=== PATIENT | female | born 1985 | race Caucasian/White ===

== ENCOUNTER 2019-01-01 17:05 | Emergency (ER) | payer MEDICAID, SELFPAY ==
[2019-01-01 17:07] VITALS: BP 128/58; PULSE 84; RESP 18; TEMP 37.1; O2SAT 99
--- NOTE | 2019-01-01 17:23 | ED.GENADUL_ITS ---
Discharge Plan Disposition Patient Disposition: HOME Condition: Good Discharge Details Chief Complaint: Abd Prob Clinical Impression: Bright red rectal bleeding Primary Care Provider: Primitivo Lea ED Provider: Lisha Newby Discharge Instructions Instructions: Rectal Bleeding (ED) Additional Instructions: Labs and imaging are reassuring today. Encourage hydration. Encourage fiber intake. You will be contacted by care managers regarding follow up with general surgery. If you do not hear by Sunday please call number listed below. If you develop fevers/chills, increased pain, increased bleeding or other new/worsening symptoms please seek care urgently once again. Stand Alone Forms: Work Release Referrals: Primitivo Lea [Primary Care Provider] - Abby Banks MD [ [facility] STAFF PHYSICIAN] - Medical Decision Making Patient is a 33 year old female with hx of fibromyalgia, with c/c of 2 blood clots per rectum. States that she had a normal BM this morning, no blood in stool at that time. A few hours later, passed a small blood clot like you would have during your period. Is sure that htis was from her rectum, states she noted in on the paper when wiping. Has another similar episode a few hours later. Is endorsing LLQ pain. LMP was 1 week ago. No recent travel. No recent antibiotics. Denies any rectal trauma. Has not put anything in her rectum. Denies easy bruising, no hematuria, bleeding from gums. Has not had this occur before. On exam, patient appears nontoxic. Vital signs are within normal limits. She is tenderness in the left lower quadrant but no peritoneal findings. On rectal exam, patient has a firm area of tissue at the 12 o'clock position but no abnormalities visual exam. Is not fluctuant to suggest an abscess, no active bleeding. It is not appear to be a fissure. Have pain with palpation over this area. Feels more like scar tissue. Unable to get out of stool from rectal vault for heme testing. Concern for possible diverticulitis though patient's age would be usual for this. Also consider rectal tumor or other etiology. Plan for labs and CT imaging. Discussed this plan with the patient who is in agreement. Labs reviewed. Patient has a white count of 13.6, otherwise unremarkable Patient had another episode of a small clot in the toilet. At this time, patient does have christine red blood near her rectum. FINDINGS: Liver: Visualized lung bases are unremarkable.The liver is normal. Gallbladder and bile ducts: The gallbladder is normal. Pancreas: The pancreas is normal. Spleen: The spleen is normal. Adrenals: The adrenal glands are normal. Kidneys and ureters: The kidneys are normal. Stomach and bowel: Unremarkable. No obstruction. No mucosal thickening. Appendix: The appendix is not definitely visualized. Intraperitoneal space: Unremarkable. No free air. No significant fluid collection. Vasculature: Unremarkable. No abdominal aortic aneurysm. Lymph nodes: Unremarkable. No enlarged lymph nodes. Bladder: The bladder is normal. Reproductive: Cystic appearing ovaries, likely physiologic given premenopausal state. Bones/joints: Unremarkable. No acute fracture. Soft tissues: Unremarkable. IMPRESSION: No acute abnormality in the abdomen and pelvis. Discussed these findings with the patient. Advised that this may be internal hemorrhoid, associated with firm areas palpated rectal exam. Advised to follow-up with general surgery for further evaluation. She was given strict return precautions. All of her questions were addressed and she is agreement with this plan. HPI General Mode of arrival: ambulatory . Date/Time Provider Initiated Documentation: 01/01/19 17:13 . Limitations to Documentation: no limitations . Information obtained by: patient and RN notes reviewed . History of Present Illness 33 year old F presents to the emergency department with the chief complaint of LLQ pain, blood clots x 2 per rectum, described as moderate, with intensity rated at 7. Quality is described as other (cramping ), and is localized to the abdomen. Patient reports no radiation. Patient started experiencing this hour(s) and it has been constant. No relieving factors improve symptom(s), No exacerbating factors reported . Patient notes no other symptoms.; denies chest pain, cough, diaphoresis, fever/chills, loss of appetite, malaise, nausea/vomiting, rash and shortness of breath. Patient did receive the following treatments prior to arrival, none Related Data Allergies Allergy/AdvReac Type Severity Reaction Status Date / Time ibuprofen AdvReac Intermediate Nausea Unverified 01/01/19 17:11 pregabalin [From Lyrica] AdvReac Intermediate Visual Unverified 01/01/19 17:11 Disturbances General Stated Complaint: Abd Prob STEPHEN: 3 Review of Systems Constitutional Constitutional: Reports as per HPI, Denies chills, Denies fatigue, Denies fever(s) and Denies headache(s) ENT Ears, Nose, Mouth, and Throat: Denies headache(s) Cardiovascular Cardiovascular: Reports as per HPI, Denies chest pain and Denies dyspnea Respiratory Respiratory: Reports as per HPI, Denies cough and Denies dyspnea Gastrointestinal Gastrointestinal: Reports as per HPI Musculoskeletal Musculoskeletal: Reports as per HPI and Denies back pain Integumentary/Breasts Skin/Breast: Reports as per HPI and Denies rash Neurologic Neurologic: Reports as per HPI and Denies headache(s) Endocrine Endocrine: Denies fatigue ON LICENSE OF [facility] Surgical History Tonsillectomy tubes in ears Family History Mother Diabetes Father Stroke Social History Smoking/Tobacco Use Status: Current-Occasional Tobacco Type: cigarettes Drug use: Never Do you feel safe at home: Yes Do you feel safe in your relationship?: Yes Exam Const General: cooperative, healthy appearing, comfortable, no acute distress and well developed Nutritional Appearance: average body habitus and well nourished Orientation: alert and awake HENMT Head: normal to inspection Mouth: moist mucous membranes Resp Effort & Inspection: normal respiratory effort, able to speak in complete sentences and no respiratory distress Auscultation: clear to auscultation bilaterally, no rales, no rhonchi and no wheezes Cardio Rate: regular rate Rhythm: regular rhythm Heart Sounds: S1 normal and S2 normal GI Inspection: normal to inspection, no edema, non-distended, no visible herniation and no visible pulsation Palpation: soft, no hepatosplenomegaly, not firm, no guarding, no hernias, no masses, not rigid and tender in the LLQ; with no rebound tenderness Percussion: normal to percussion Auscultation: hypoactive bowel sounds Rectal Exam - female: visual inspection normal, normal sphincter tone (firm area of tissue at the 12 o'clock position, no visual abnormality), No hemorrhoids, No laceration, No lesions, No tenderness and other (no stool available for heme testing) Back/Spine/Pelvis Back: no CVA tenderness Skin General skin exam: no rashes or lesions noted Trauma: no lacerations or abrasions Neuro General: alert and awake Cognition: normal cognition Speech: speech normal Gait: normal gait Psych Appearance: grossly normal and well kempt Mental Status: mental status grossly normal Speech and Movement: speech and movement normal Course Vital Signs Vital signs: Vital Signs Temperature 37.1 C 01/01/19 17:07 Pulse 84 01/01/19 17:07 Respiratory Rate 18 01/01/19 17:07 Blood Pressure 128/58 L 01/01/19 17:07 Pulse Oximetry 99 01/01/19 17:07 Temperature 37.1 C 01/01/19 17:07 Temperature Source Skin 01/01/19 17:07 Pulse 84 01/01/19 17:07 Respiratory Rate 18 01/01/19 17:07 Respiratory Effort 01/01/19 17:12 Blood Pressure 128/58 L 01/01/19 17:07 Blood Pressure Position Sitting 01/01/19 17:07 Pulse Oximetry 99 01/01/19 17:07 Oxygen Delivery Method Room Air 01/01/19 17:07 Oxygen Flow Rate 0 01/01/19 17:07 Pain Level 7 01/01/19 17:07
[2019-01-01 17:54] LABS: Abs Immature Grans 0.02 k/cumm (0.0-0.09); Absolute Basophil Count 0.04 k/cumm (0.0-0.2); Absolute Eosinophil Count 0.15 k/cumm (0.0-0.7); Absolute Lymphocyte Count 2.89 k/cumm (1.2-3.4); Absolute Monocyte Count 1.01 k/cumm (0.11-0.7); Absolute Neutrophil Count 9.53 k/cumm (1.2-6.7); Basophils % 0.3; Eosinophils % 1.1; HCT 39.8 % (36.0-46.0); HGB 13.4 g/dL (12.0-15.5); Immature Grans % 0.1; Lymphocytes % 21.2; Mean Corp. HGB Concentration 33.7 g/dL (32.0-36.0); Mean Corpuscular Hemoglobin 29.1 pg (27.0-33.0); Mean Corpuscular Volume 86.3 fL (80-95); Mean Platelet Volume 10.8 fL (8.0-11.0); Monocytes % 7.4; Neutrophils % 69.9; Platelet Count 274 x1000/uL (130-400); RBC 4.61 m/cumm (4.00-5.20); RBC Distribution Width 13.5 % (11.7-14.6); White Blood Cell Count 13.64 k/cumm (4.4-10.8)
[2019-01-01 18:00] LABS: Bilirubin Negative (Negative); Blood Negative (Negative); Clarity Clear (Clear); Glucose Negative (Negative); Ketones 15 mg/dL (Negative); Leukocyte Esterase Negative (Negative); Nitrite Negative (Negative); Specific Gravity 1.015 (1.005-1.025); Urobilinogen 0.2 EU/dL (Up TO 0.2); pH 5.5 (5-8)
[2019-01-01 18:07] LABS: ALT 29 U/L (14-59); AST 18 U/L (15-37); Alkaline Phosphatase 50 U/L (46-116); Anion Gap 10.9 mmol/L (3-11); BUN 12 mg/dL (7-18); Bilirubin, Total 0.3 mg/dL (0.2-1.0); CO2 24.1 mmol/L (21.0-32.0); CREATININE 0.82 mg/dL (0.55-1.02); Calcium 8.8 mg/dL (8.5-10.1); Chloride 104 mmol/L (98-107); Glucose 82 mg/dL (74-106); Potassium 3.6 mmol/L (3.5-5.1); Sodium 139 mmol/L (136-145); Total Protein 7.2 g/dL (6.4-8.2)
[2019-01-01] MEDS: Normal Saline 1,000 ML 1000 ML IV (18:23)
[2019-01-01] MEDS: Omnipaque 350 MG/ML 100 ML BTL IJ (19:26)
--- NOTE | 2019-01-01 19:30 | DI.CT_ITS ---
EXAM: CT ABDOMEN PELVIS W CLINICAL HISTORY: LLQ pain, clots per rectum TECHNIQUE: CT examination of the abdomen and pelvis was performed with bolus infusion of 100 cc Omni paque 350 and ingestion dilute barium. COMPARISON: ABD PELVIS WITH CONTRAST from 05/14/2016 FINDINGS: Images obtained through the lung bases show a well-circumscribed right lower lobe noncalcified intrap ulmonary nodule measuring 6 millimeters in diameter. 6 millimeter pleural-based nodule also identifi ed in the left lung base posteriorly. Follow-up chest CT recommended in 6 months to evaluate stabili ty of these lesions. Liver, spleen and pancreas are normal in appearance. Gallbladder and bile ducts are CT normal. Adre nals and kidneys appear normal. There is no evidence of urinary tract calcification or obstruction. Abdominal aorta is of normal diameter and no major vascular abnormality is seen. No significant abd ominal wall hernia seen. Slight prominence of mesenteric lymph nodes which is nonspecific. No bulky adenopathy. Appendix is presumptively identified and appears normal. No evidence of diverticulitis or bowel obst ruction. Molder Floor structures unremarkable. IMPRESSION: No evidence of acute intra-abdominal process. Follow-up chest CT recommended in 6 months to follow 2 indeterminate noncalcified 6 millimeter pulmonary nodules.
[2019-01-01] MEDS: Breeza Beverage 473 ML BTL PO ×2 (19:35→19:36)
[2019-01-01] MEDS: Omnipaque 350 MG/ML 50 ML BTL IJ (19:36)
--- NOTE | 2019-01-01 19:58 | DI.VRAD_ITS ---
PROCEDURE INFORMATION: Exam: CT Abdomen And Pelvis With Contrast Exam date and time: 01/01/2019 7:24 PM Age: 33 years old Clinical history: Abdominal pain; Localized; Left lower quadrant (llq); Patient HX: Clots per ectum TECHNIQUE: Imaging protocol: Computed tomography of the abdomen and pelvis with intravenous contrast. Radiation optimization: All CT scans at this facility use at least one of these dose optimization techniques: automated exposure control; mA and/or kV adjustment per patient size (includes targeted exams where dose is matched to clinical indication); or iterative reconstruction. Contrast material: [id number]; Contrast volume: 100 ml; Contrast route: IV 20G RAC; Other contrast: Route: Oral, Material: [id number], Volume: 50; COMPARISON: CT ABD PELVIS WITH CONTRAST 05/14/2016 11:01 AM FINDINGS: Liver: Visualized lung bases are unremarkable.The liver is normal. Gallbladder and bile ducts: The gallbladder is normal. Pancreas: The pancreas is normal. Spleen: The spleen is normal. Adrenals: The adrenal glands are normal. Kidneys and ureters: The kidneys are normal. Stomach and bowel: Unremarkable. No obstruction. No mucosal thickening. Appendix: The appendix is not definitely visualized. Intraperitoneal space: Unremarkable. No free air. No significant fluid collection. Vasculature: Unremarkable. No abdominal aortic aneurysm. Lymph nodes: Unremarkable. No enlarged lymph nodes. Bladder: The bladder is normal. Reproductive: Cystic appearing ovaries, likely physiologic given premenopausal state. Bones/joints: Unremarkable. No acute fracture. Soft tissues: Unremarkable. IMPRESSION: No acute abnormality in the abdomen and pelvis. Dictated and Authenticated by: Leonides Rubalcava MD. Ordering:JARED Husain MD
--- NOTE | 2019-01-01 20:05 | NUR.NOTE ---
Nursing Note: faxed referal to general surgery 01/01/19
[2019-01-01 20:19] VITALS: BP 117/64; PULSE 73; RESP 18; TEMP 36.6; O2SAT 98
--- NOTE | 2019-01-03 09:22 | NUR.NOTE ---
Nursing Note: Faxed to [facility] referral for follow up per radiologist report. Rosy Kirkpatrick.
== END 2019-01-01 20:20 | disposition home or self-care (01) ==
PROVIDERS: Emergency Provider Physician Assistant; PCP Specialist/Technologist Athletic Trainer
DX: K92.1 Melena (principal)
CPT/HCPCS: 36415; 80053; 81025; 96360; 99285; 74177; 81003; 85025; 99284; J3490; Q9967

== ENCOUNTER 2019-02-17 09:02 | Day surgery (SDC) | payer MEDICAID, SELFPAY ==
--- NOTE | 2019-02-17 06:49 | COLE_ITS ---
Date of service: 02/17/19 Time of Service: 10:03 Colonoscopy Report Date of procedure: 02/17/19 Pre-op diagnosis general: Bright Red Blood per Rectum Post-op diagnosis procedure note: other (Grade 1 intrnal hemorrhoids and benign polyp) Procedure: Colonoscopy with polypectomy Surgeon: Abby Banks Anesthesia proc note operative: other (General/ ASA 2/Tiana Rodrigez, NICHOLAS) Estimated blood loss (mL): 2 Pathology: other (Sigmoid polyp) Complications: None Disposition: same day Indications: Ms. Camarillo is a pleasant 33-year-old female who was seen in the emergency department on January 01 for rectal bleeding. Ame tells me that the night prior to going to the emergency department she was woken up in the middle the night with the urge to go to the bathroom. She went to the bathroom and did not have a bowel movement but when she got up to go back to bed she felt a dizzy so she sat back down for a little bit. She was unable to go back to bed and then woke up in the morning had a normal bowel movement but just did not feel quite right. She ended up going to work and again did not feel well so she was sent home. She then went to the bathroom again at home and noted that she passed a blood clot from her rectum. She then went to the emergency department to be seen and had to go to the bathroom and again had a blood clot. Rectal exam done by the emergency department physician showed no gross blood in the v eitan and there was no stool in order to be able to do a occult blood test. Lab work was unremarkable and CT scan showed no acute findings. The next day ame went back to work and she does do some heavy lifting at work and noted pain in the left lower quadrant when lifting. She abstained from lifting for a couple of days and has had no more issues since then. She is also not had any more bleeding. She denies any changes in bowel habits. She did not have any constipation at the time that this happened or diarrhea. Exam in the emergency department did not reveal any hemorrhoids. Ame does not have a family history of colon cancer or rectal cancer that she is aware of. She does tell me that her mother had half of her bowel removed for hemorrhaging at the time that she was also on dialysis for kidney failure. She is not clear as to whether it was small bowel or large bowel that was removed. She does not think that it was due to cancer though. She she remembers being told that it was due to an infection. She was 18 at the time that this happened Prep: Miralax/Dulcolax Procedure Start Time: 10:03 Procedure End Time: 10:20 Retraction Time: 10 minutes Findings: One small hyperplastic polyp <1 cm in size Grade 1 internal hemorrhoids Procedure Description: After informed consent was obtained the patient was taken to the procedure room and placed in a left decubitous position. Monitors were applied and a time out was done. The patients name, date of , procedure, allergies to medications and metal in their body was reviewed. The patient was then sedated. Once sedated and comfortable a rectal exam was done. External exam was normal. Internal exam revealed a normal sphincter tone and no palpable masses. The scope was then introduced and retro-flexed. Grade 1 internal hemorrhoids were identified. There were no polyps or masses on retro-flexion. The scope was then advanced to the cecum without difficulty. The TI and appendiceal orifice were identified. The prep was adequate. The scope was then slowly retracted over 10 minutes back into the rectum. Retraction of the scope was difficult due to the patient coughing throughout the procedure. Polyps were removed with cold forceps in the sigmoid colon. The polyp was small, <1 cm, and looked hyperplastic. There were no diverticula or other reasons for the patients bleeding. The scope was removed and the patient was woken up and taken back to Same day surgery in stable condition. The patient tolerated the procedure well and there were no immediate complications. Follow up: Follow up will depend on pathology but most likely at age 52.
--- NOTE | 2019-02-17 06:50 | W.PM.DSUDISC ---
Discharge Plan Disposition Patient Disposition: HOME Condition: Good Discharge Details Reason For Visit: Hx of Rectal Bleeding Attending Provider: Abby Banks Primary Care Provider: Primitivo Lea Home Meds and New Rx's Prescriptions: Continued acetaminophen [Tylenol] 325 mg capsule 650 mg PO ONCE PRNRF: 0 Discharge Instructions Instructions: Hemorrhoids (DC) Additional Instructions: Findings: small hemorrhoids One benign polyp Follow up: I will send you a letter in the mail Please call if you develop: fevers >101.5 Nausea or Vomiting Abdominal pain that is not transient DAY SURGERY UNIT POST ENDOSCOPY INSTRUCTIONS 1. Because there will be medication in your system for the next 24 hours, you may feel a little sleepy. Your coordination will be affected. Therefore: a. Do not drive or operate dangerous equipment for 24 hours. b. Do not drink alcohol beverages for 24 hours (not even beer). c. Plan to go home and rest for the day. 2. Generally there are no restrictions on your activity after a day or so has gone by, but you may feel a bit fatigued for a few days. 3 After you arrive home you may have a light meal and return to a normal diet as you can tolerate it without feeling sick to your stomach. 4. After surgery, you may feel pain or discomfort. This should be only transient, but if it persists please contact your doctor. 5. If there are any questions regarding the findings of your procedure, please feel free to contact your doctor. 6. If you are unable to contact your doctor with a problem, contact the hospital at [phone]. 7. Continue all your regular medications unless directed otherwise. I understand the above instructions and have no questions. Signature of Patient or Responsible Adult Escort Date/Time Name of Responsible Adult Escort Signature of Nurse Date/Time Activity:: Activity as Tolerated Diet:: As Tolerated Discharge Orders Discharge Orders: Discharge Order (Routine); Ordered 02/17/19 Ordered By: Abby Banks DS: Diagnosis Discharge Diagnosis (1) Internal hemorrhoids: Status: Acute
--- NOTE | 2019-02-17 06:58 | W.PM.HP.N ---
Date of service: 02/17/19 Assessment and Plan Assessment and plan (1) Rectal hemorrhage: Status: Acute Assessment and plan: A\\ 33-year-old female with 2 episodes of passing blood clot from her rectum. She also had some mild left lower quadrant pain with heavy lifting right after this happened for a couple of days. The bleeding and the pain have both resolved at this time. There is no family history of colon cancer. Differential includes hemorrhoid bleed, diverticular bleed (although no diverticula are noted on CAT scan), rectal or sigmoid mass/polyp. Colonoscopy is recommended. P\\ Colonoscopy under sedation Risks, benefits and complications have been reviewed. Complications include but are not limited to bleeding, pain, perforation, missed small lesion/polyp, sore throat, aspiration and adverse reaction to the medications. Questions were entertained and answered to their satisfaction and they wished to proceed. No guarantees were given or implied. History of Present Illness Narrative: Ms. Camarillo is a pleasant 33-year-old female who was seen in the emergency department on January 01 for rectal bleeding. Georges tells me that the night prior to going to the emergency department she was woken up in the middle the night with the urge to go to the bathroom. She went to the bathroom and did not have a bowel movement but when she got up to go back to bed she felt a dizzy so she sat back down for a little bit. She was unable to go back to bed and then woke up in the morning had a normal bowel movement but just did not feel quite right. She ended up going to work and again did not feel well so she was sent home. She then went to the bathroom again at home and noted that she passed a blood clot from her rectum. She then went to the emergency department to be seen and had to go to the bathroom and again had a blood clot. Rectal exam done by the emergency department physician showed no gross blood in the vault and there was no stool in order to be able to do a occult blood test. Lab work was unremarkable and CT scan showed no acute findings. The next day georges went back to work and she does do some heavy lifting at work and noted pain in the left lower quadrant when lifting. She abstained from lifting for a couple of days and has had no more issues since then. She is also not had any more bleeding. She denies any changes in bowel habits. She did not have any constipation at the time that this happened or diarrhea. Exam in the emergency department did not reveal any hemorrhoids. Georges does not have a family history of colon cancer or rectal cancer that she is aware of. She does tell me that her mother had half of her bowel removed for hemorrhaging at the time that she was also on dialysis for kidney failure. She is not clear as to whether it was small bowel or large bowel that was removed. She does not think that it was due to cancer though. She she remembers being told that it was due to an infection. She was 18 at the time that this happened. Georges is otherwise healthy and has had no cardiac issues or renal issues. She takes no medications aside from Tylenol as needed. other (clots x2) Frequency: resolved 1-2 weeks 12/31/18 Recurrent bleeding: No Date of last episode: 01/01/19 other (llq PAIN WITH LIFTING) Progression: resolved Denies fever(s), heartburn or dyspepsia There have been no changes in the above history since she was seen in the office Review of Systems Constitutional Constitutional: Denies fever(s) and Denies weight loss Cardiovascular Cardiovascular: Denies chest pain, Denies palpitations, Denies dyspnea and Denies dyspnea on exertion Respiratory Respiratory: Denies chest congestion, Denies cough, Denies dyspnea and Denies dyspnea on exertion Endocrine Endocrine: Denies palpitations [facility] Medical History (Updated 02/17/19 @ 09:35 by Alyse Patrick) Fibromyalgia (Acute) History of anxiety (Acute) Surgical History Tonsillectomy tubes in ears Family History Mother Diabetes Father Stroke Social History Smoking/Tobacco Use Status: Current-Occasional Tobacco Type: cigarettes Years smoked: 12 Tobacco: How many years used: 12 Alcohol Intake: current Alcohol Intake frequency: a few times a month Alcohol type: hard liquor Drug use: Never Substance use type: marijuana Details: smokes at night to help her sleep. alcohol:t-14, one drink. Marijuana: t-2, bowl Do you feel safe at home: Yes Do you feel safe in your relationship?: Yes Meds Home Medications and Allergies Home Medications Medication Instructions Recorded Confirmed Type acetaminophen 325 mg capsule 650 mg PO ONCE PRN cap 01/17/19 02/17/19 History Allergies Allergy/AdvReac Type Severity Reaction Status Date / Time ibuprofen AdvReac Intermediate Nausea Unverified 02/14/19 12:11 pregabalin [From Lyrica] AdvReac Intermediate Visual Unverified 02/17/19 09:33 Disturbances Exam Const General: cooperative, comfortable and no acute distress [facility] Head: normocephalic and atraumatic Resp Effort & Inspection: normal respiratory effort Auscultation: clear to auscultation bilaterally Cardio Rate: regular rate Rhythm: regular rhythm Heart Sounds: no gallops, no murmurs and no rubs
[2019-02-17 09:36] VITALS: BP 119/80; PULSE 91; RESP 14; TEMP 36.7; O2SAT 100
[2019-02-17] MEDS: Lactated Ringers 1,000 ML 80 ML IV (09:40)
--- NOTE | 2019-02-17 10:18 | BOWEL_PTH ---
PATIENT: Ame Camarillo LOC: [facility] U#:[id number] AGE/SX: 33/F ROOM: RE02/17/[address]: Abby Banks MD : [id number] BED: DIS: 02/17/2019 SPEC #: [id number] RECD: 02/17/19 11:13 STATUS: BEN REQ #: [id number] BEBE: 02/17/19 10:[address]: Abby Banks DEPT: Surgical Specimen RECD BY: Roseanne Florian ENTERED: 02/17/19 11:13 SP TYPE: Bowel OTHR DR: Primitivo Lea Tissues: 1 - BIOPSY BOWEL Procedures: GROSS AND MICRO LEVEL 4 Comments: [id number]
[2019-02-17 11:03] VITALS: BP 107/62; PULSE 72; RESP 18; TEMP 36.3; O2SAT 100
== END 2019-02-17 11:23 | disposition home or self-care (01) ==
LOC: SUR 09:03
PROVIDERS: PCP Specialist/Technologist Athletic Trainer; Visit Provider Surgery
PROC: 0DJD8ZZ Inspection of Lower Intestinal Tract, Via Natural or Artificial Opening Endoscopic (ICD-10-PCS; CPT 45378; principal; 2019-02-17 10:30)
DX: K62.5 Hemorrhage of anus and rectum (principal); K63.5 Polyp of colon; K64.0 First degree hemorrhoids
CPT/HCPCS: 45380; 81025; 88305; NC; J2704

== ENCOUNTER → 2022-10-26 02:31 | Outpatient (CLI) | payer MEDICAID, SELFPAY ==
--- NOTE | 2022-10-26 | DI.CT_ITS ---
Exam(s) CT CHEST WO EXAM: CT CHEST WO CLINICAL HISTORY: LUNG NODULE R91.8. TECHNIQUE: Imaging protocol: Axial computed tomography images were obtained and coronal and sagittal reformatted images were created and reviewed. COMPARISON: CT CT ABDOMEN PELVIS W from 01/01/2019 FINDINGS: Tracheobronchial tree: Patent where visualized. Pulmonary parenchyma: No consolidation or dominant measurable mass. There are several noncalcified pu lmonary nodules present. The largest measures 5 mm and is located in the left lung base peripherally . Mediastinum and K[place]um: No dominant adenopathy or fluid collection. The esophagus is unremarkable.There is a small amount soft tissue seen in the anterior mediastinum which may reflect residual thymic tis trixie. Thyroid gland: Unremarkable. Pleura: No effusion or pneumothorax. Heart: The heart is not dilated. No coronary artery calcifications are seen. No pericardial effusion. Aorta: Thoracic aorta non-dilated. Upper abdomen: Unremarkable. Lymph nodes: Within normal limits. Soft tissues: Unremarkable. Bones:Within normal limits for the patient's age. IMPRESSION: Several noncalcified pulmonary nodules. The largest measures 5 mm. For low risk and high risk patie nts, CT scan in 12 months may be obtained. (Flex et al, 2017). RADIATION DOSE DELIVERED: 399.04mGy.cm Total DLP 399.04mGy.cm Total DLP DATA REPOSITORY: All CT scans at this facility are submitted to the National Radiology Data Registry (NRDR) Dose Index Registry (DIR) with the [employer] ([employer]). RADIATION OPTIMIZATION: All CT scans at this facility use at least one of these dose optimization te chniques: automated exposure control; mA and/or kV adjustment per patient size (includes targeted exa ms where dose is matched to clinical indication); or iterative reconstruction.
== END ==
PROVIDERS: PCP Specialist/Technologist Athletic Trainer; Visit Provider Nurse Practitioner Family
DX: R91.8 Other nonspecific abnormal finding of lung field (principal)
CPT/HCPCS: 71250

== ENCOUNTER 2023-01-11 12:03 | Emergency (ER) | payer MEDICAID, SELFPAY ==
[2023-01-11 12:16] VITALS: BP 130/72; PULSE 85; RESP 18; O2SAT 97
[2023-01-11] MEDS: Albuterol/Ipratropium 3 ML UPD VIAL (12:50)
[2023-01-11 13:24] VITALS: PULSE 90; O2SAT 98
[2023-01-11] MEDS: predniSONE 20 MG TAB 40 MG PO (13:24)
[2023-01-11] MEDS: Albuterol/Ipratropium 3 ML UPD VIAL UPD (13:24)
[2023-01-11 13:36] LABS: COVID-19 PCR Negative (Negative); Influenza A PCR Negative (Negative); Influenza B PCR Negative (Negative); RSV PCR Negative (Negative)
[2023-01-11 13:37] LABS: Source Nasopharynx
--- NOTE | 2023-01-11 13:45 | DI.RAD_ITS ---
Exam(s) XR CHEST 2V PA LATERAL EXAM: XR CHEST 2V PA LATERAL CLINICAL HISTORY: cough, wheeze, shortness of breath TECHNIQUE: 2D digital imaging was performed. COMPARISON: No exams were available for comparison FINDINGS: HEART: Normal size. Aorta: Not dilated. PULMONARY VASCULATURE: Normal. LUNGS: Clear. PLEURAL SPACE: No pleural effusion or pneumothorax. BONE:Unremarkable for age. Soft tissues: Unremarkable. IMPRESSION: No acute abnormality. DATA REPOSITORY: RADIATION DOSE DELIVERED:
[2023-01-11 14:07] VITALS: BP 118/54; PULSE 84; RESP 18; O2SAT 98
--- NOTE | 2023-01-12 18:13 | ED.GENADUL_ITS ---
Discharge Plan Disposition Patient Disposition: Home Discharge Details Clinical Impression: Acute bronchitis Primary Care Provider: Ayla Gallagher ED Provider: Roseanne Buck Home Meds and New Rx's Prescriptions: New albuterol sulfate 90 mcg/actuation aerosol powdr breath activated 2 inh inhalation Q6H PRNQty: 1 0RF prednisone 20 mg tablet 40 mg PO ONCE Qty: 8 0RF Continued acetaminophen [Tylenol] 325 mg capsule 650 mg PO ONCE PRN venlafaxine 37.5 mg capsule,extended release 24hr 75 mg PO DAILY Patient Comments: TAKE ONE CAPSULE BY MOUTH EVERY DAY Discharge Instructions Instructions: Acute Bronchitis (ED) Additional Instructions: Take prednisone as prescribed You took a dose today in the emergency department, you do not need another dose until tomorrow Use albuterol, 2 puffs every 4-6 hours as needed for cough, wheeze, shortness of breath At the grocery store he may get cough and cold tea and honey and lemon and this can help with your symptoms Please be reevaluated with fever, greater than 100.4, worsening shortness of breath, or should you develop new or progressing symptoms Stand Alone Forms: Work Release Referrals: Ayla Gallagher [Primary Care Provider] - Discharge Data Discharge Date/Time-TO BE ENTERED AT DEPARTURE: 01/11/23 14:13 Medical Decision Making 37-year-old female presenting with upper respiratory symptoms Chest x-ray does not show evidence of acute abnormality, COVID, flu, RSV negative Feeling symptomatic improvement after 2 DuoNebs Suspect bronchitis, will treat patient with prednisone and albuterol inhaler Return precautions discussed and patient expressed understanding Temp 36.9 tympanically, oxygen 98% on room air, no respiratory distress, no wheezing noted, no significant increased work of breathing, no calf swelling or tenderness appreciated HPI General Date/Time Provider Initiated Documentation: 01/11/23 12:28 . HPI Narrative: This 37-year-old female presents with cough, shortness of breath, wheezing, hot and cold flashes and headaches for the past several days. States that her partner sick with similar symptoms. Denies history of asthma. Denies any significant chest discomfort. Denies chance of . Smokes tobacco. Denies calf pain or swelling or history of coagulopathy. Denies exogenous hormones. Related Data Home Medications Medication Instructions Recorded Confirmed acetaminophen 325 mg capsule 650 mg PO ONCE PRN 01/17/19 01/11/23 (Tylenol) albuterol sulfate 90 mcg/actuation 2 inh inhalation Q6H PRN #1 ea 01/11/23 breath activated powder inhaler prednisone 20 mg tablet 40 mg (2 x 20 mg) PO ONCE #8 tabs 01/11/23 venlafaxine 37.5 mg 75 mg PO DAILY 01/11/23 01/11/23 capsule,extended release 24 hr Previous Rx's Medication Instructions Recorded albuterol sulfate 90 mcg/actuation 2 inh inhalation Q6H PRN #1 ea 01/11/23 breath activated powder inhaler prednisone 20 mg tablet 40 mg (2 x 20 mg) PO ONCE #8 tabs 01/11/23 Allergies Allergy/AdvReac Type Severity Reaction Status Date / Time ibuprofen AdvReac Intermediate Nausea Unverified 01/11/23 12:20 pregabalin [From Lyrica] AdvReac Intermediate Visual Unverified 01/11/23 12:20 Disturbances General Stated Complaint: RespSymp STEPHEN: 3 PFSH All Active Problems (Updated 01/11/23 @ 13:55 by RADHA Vela) Acute bronchitis (Acute) Internal hemorrhoids (Acute) Rectal hemorrhage (Acute) Medical History (Updated 01/11/23 @ 13:55 by RADHA Vela) History of anxiety Fibromyalgia Surgical History S/P colonoscopy (~02/17/19) tubes in ears Tonsillectomy Family History Mother Diabetes Father Stroke Social History Smoking/Tobacco Use Status: Current-Occasional Tobacco Type: cigarettes Years smoked: 12 Tobacco: How many years used: 12 Smoking risk assessment performed?: Yes Alcohol Intake: current Alcohol Intake frequency: a few times a month Alcohol type: hard liquor Drug use: Occasionally Substance use type: marijuana Details: smokes at night to help her sleep. alcohol:t-14, one drink. Marijuana: t-2, bowl Housing: apartment Do you feel safe at home: Yes Do you feel safe in your relationship?: Yes Course Vital Signs Vital signs: Vital Signs Pulse 85 01/11/23 12:16 Respiratory Rate 18 01/11/23 12:16 Blood Pressure 130/72 01/11/23 12:16 Pulse Oximetry 97 01/11/23 12:16 Pulse 84 01/11/23 14:07 Respiratory Rate 18 01/11/23 14:07 Respiratory Effort Normal 01/11/23 13:25 Respiratory Depth Normal 01/11/23 13:25 Blood Pressure 118/54 L 01/11/23 14:07 Blood Pressure Position Sitting 01/11/23 12:16 Pulse Oximetry 98 01/11/23 14:07 Oxygen Delivery Method Room Air 01/11/23 12:16 Oxygen Flow Rate 0 01/11/23 12:16 Lab/Test Results Lab/Test Results: Laboratory Tests Range/Units 01/11/23 12:50 COVID-19 Source Nasopharynx SARS-CoV-2 (PCR) (Negative) Negative Influenza Type A (PCR) (Negative) Negative Influenza Type B (PCR) (Negative) Negative RSV (PCR) (Negative) Negative
== END 2023-01-11 14:13 | disposition home or self-care (01) ==
PROVIDERS: Emergency Provider Physician Assistant; PCP Nurse Practitioner Family
DX: J20.9 Acute bronchitis, unspecified (principal); R51.9 Headache, unspecified; Z20.822 Contact with and (suspected) exposure to COVID-19
CPT/HCPCS: 87637; 94640; 99283; 71046; J7512; J7620